=== PATIENT | male | born 1995 | race Hispanic/Latino ===

== ENCOUNTER 2018-11-28 04:22 | Emergency (ER) | payer OTHER | END 2018-11-28 04:38 | disposition home or self-care (01) | LOC: EDH 04:22 → EEVIPCON 04:22 → EDH 04:38 | DX: Z02.83 Encounter for blood-alcohol and blood-drug test (principal); Z90.49 Acquired absence of other specified parts of digestive tract; Z88.6 Allergy status to analgesic agent ==